=== PATIENT | female | born 1965 | race Caucasian/White ===

== ENCOUNTER 2020-09-22 06:52 | Emergency (ER) | payer SELFPAY ==
[~2020-09-22] VITALS: Ht 162.6 cm; Wt 87.2 kg
[2020-09-22] MEDS ORDERED: LISINOPRIL10 MG PO (07:12)
[2020-09-22] MEDS ORDERED: ROPINIROLE1 MG PO (07:13)
[2020-09-22] MEDS ORDERED: LUNESTA1 M1 PO (07:15)
[2020-09-22] MEDS ORDERED: FLONASE AL50 MCG/ACT (07:22)
[2020-09-22] MEDS ORDERED: CLARITIN10 M1 PO (07:22)
[2020-09-22] MEDS ORDERED: AMOXICILLIN875 MG PO (07:22)
[2020-09-22 07:40] VITALS: BP 144/85
== END 2020-09-22 07:40 | disposition home or self-care (01) | DRG 153 ==
LOC: ED 06:52
DX: H66.93 Otitis media, unspecified, bilateral (principal); I10 Essential (primary) hypertension